=== PATIENT | male | born 2005 | race Caucasian/White ===

== ENCOUNTER 2025-07-12 07:15 | Emergency (ER) | payer OTHER, SELFPAY ==
[2025-07-12 07:26] VITALS: BP 139/63; PULSE 79; RESP 20; TEMP 36.9; O2SAT 97; BMI 21.2
--- NOTE | 2025-07-12 07:28 | ED.ABDPAIN ---
HPI - Abdominal Pain General Chief Complaint: Abdominal Pain Stated Complaint: Stomach issues. V/D Time Seen by Provider: 07/12/25 07:46 Source: patient and RN notes reviewed Mode of arrival: ambulatory Limitations: no limitations History of Present Illness ED Provider: Roxanna Bui PA-C HPI narrative: This is a [id number] who presents to the ER with complaints of abdominal pain, diarrhea, vomiting, and nausea. Reports that he has had cyclical vomiting over the last 3 days. Patient reports that his colleague is sick with similar symptoms. He states that the abdominal pain has since resolved after vomiting this morning. Denies any nausea. States that he is otherwise feeling well. Denies any fevers, chills, chest pain, shortness for breath, urinary symptoms. No bloody black stool. No hematemesis or hemoptysis. Denies taking any medications at home to treat his current symptoms. He states he previously was on omeprazole for acid reflux which he has since discontinued as he felt as though it was not helping. Denies alcohol use. No other complaints or concerns at this time. MD elicited complaint: abdominal pain Pain Consistency: constant Location: none Quality: aching Radiation: none Migration to: no migration Exacerbating factors: eating Relieving factors: nothing Associated symptoms: nausea, vomiting and diarrhea Related Data Previous Rx's ?Medication ?Instructions ?Recorded omeprazole 20 mg capsule,delayed 20 mg PO DAILY 2 weeks #14 caps 07/12/25 release ondansetron 4 mg disintegrating 4 mg PO Q6H PRN nausea and 07/12/25 tablet vomiting #7 tabs Allergies Allergy/AdvReac Type Severity Reaction Status Date / Time No Known Allergies Allergy Verified 07/12/25 07:29 Review of Systems Review of Systems Constitutional : No Fever, No Chills ENT/Mouth : No sore throat, No Rhinorrhea Eyes: No Eye Pain, No Swelling, No Redness Cardiovascular : No Chest Pain, No SOB Respiratory : No Cough, No Sputum Gastrointestinal : + Nausea, + Vomiting, + Diarrhea, +abdominal Pain Genitourinary : No Dysuria, No Hematuria Musculoskeletal : No joint pain, No Myalgias, No Joint Swelling Skin : No Skin Lesions Neuro : No Weakness, No Numbness, No Headache All other systems reviewed and are negative Yes all other systems are reviewed and are negative Constitutional: Reports as per [facility] Past Medical History Attestation statement: The following information was validated with the patient. Social History Social History Advance Directives: No Advance Directives Information Provided: No Do you have a plan to hurt others: No Plan Physical Exam ED Vital Signs: Vital Signs - 24 hr 07/12/25 07:26 07/12/25 08:52 07/12/25 09:30 Temperature 98.5 F 98.2 F 98.2 F Pulse Rate 79 60 60 Respiratory Rate 20 16 16 Blood Pressure 139/63 127/81 127/81 Pulse Oximetry 97 98 98 Oxygen Delivery Method Room Air Room Air Room Air BMI result Body Mass Index 21.2 Const General: cooperative, comfortable and no acute distress Orientation/consciousness: patient oriented x3 Limitations: no limitations HENMT Head: Yes normal to inspection, Yes normocephalic and Yes atraumatic Ears: hearing grossly normal bilaterally General nose exam: Normal external nose present Face and sinus: Yes normal facial exam Mouth: Normal oral and palatal mucosa present, oropharynx normal and moist mucous membranes Throat: Yes posterior oropharynx normal Eyes General: appearance normal, both eyes and all related structures Eyelids: Yes eyelids normal Conjunctivae: conjunctivae normal Sclerae: sclerae normal Pupils: Equal, round and reactive pupils present EOM: EOMs intact bilaterally Neck Neck: Yes normal visual inspection, Yes full ROM and Yes no lymphadenopathy Lymphatic: no lymphadenopathy noted Chest Chest palpation & inspection: normal inspection of the chest Resp Effort & Inspection: normal respiratory effort and able to speak in complete sentences Auscultation: clear to auscultation bilaterally, no crackles, no rales, no rhonchi and no wheezes Cardio Rate: regular rate Rhythm: regular rhythm Heart sounds: S1 normal heart sound present and S2 normal heart sound present GI Other: Abdomen is soft, nontender, nondistended Inspection: Yes normal to inspection Skin General skin exam: no rashes or lesions noted Trauma: no lacerations or abrasions Wounds: no wounds Neuro General: patient oriented x3 and moves all extremities Cranial nerves: Yes Equal, round and reactive pupils present Extrem General: Yes normal to inspection Right upper extremity: normal to inspection Left upper extremity: normal to inspection Right lower extremity: normal to inspection Left lower extremity: normal to inspection Medical Decision Making Medical Decision Making MDM Narrative: This is a [id number]-male who presents to the ER with complaints of abdominal pain, diarrhea, vomiting, and nausea. On arrival, vital signs within normal limits. He is speaking full sentences under no acute distress. Abdomen is soft, nontender, nondistended. Differential diagnoses include electrolyte derangement, gastritis, gastroenteritis, viral illness. Less likely acute abdomen versus acute surgical process as patient has a nondistended nontender, soft abdomen. He is not experiencing any abdominal pain at this point. We will obtain basic labs to rule out any electrolyte derangement. Patient is feeling better prior to his arrival therefore we will hold off on any IV medications or antiemetics. We will continue to closely monitor pending overall workup. 8:58 AM 07/12/2025 (Roxanna Bui PA-C): Labs returned, he has no leukocytosis, stable H&H, chemistry revealing slight elevation in T bili however patient has no abdominal pain, liver enzymes within normal limits. Lipase within normal limits. Discussed with patient that he may be experiencing cyclical vomiting syndrome, or a viral gastroenteritis. He also has a history of GERD and he has not been taking omeprazole. He has been taking this twice a day in the past which she realize did not help him. He was not taking this on an empty stomach. Stressed the importance of taking Prilosec on an empty stomach, and given prescription for Zofran. He is able to tolerate p.o. in the department therefore patient can be discharged. Advised patient to follow-up with his PCP upon returning home. Differential Diagnosis Differential Diagnoses: The differential diagnosis associated with the presentation includes See above Lab Data [facility] Lab Attestation statement: I reviewed the patient's lab results. See [facility] 07/12/25 07:37 07/12/25 07:37 Labs: Lab Results 07/12/25 Range/Units 07:37 WBC 9.1 (4.8-10.8) X10*3/uL RBC 5.51 (4.60-5.80) X10*6/uL Hgb 16.1 (14.0-18.0) g/dl Hct 47.3 (42.0-52.0) % MCV 85.8 (80.0-98.0) fL MCH 29.2 (27.0-33.0) pg MCHC 34.0 (31.0-36.0) g/dl RDW 13.0 (11.0-16.0) % Plt Count 275 (160-400) X10*3/uL MPV 9.3 L (9.4-12.4) fL Immature Gran % (Auto) 0.3 (0.0-0.4) % Neut % (Auto) 80.2 H (45-73) % Lymph % (Auto) 13.6 L (20-40) % [place] % (Auto) 5.4 (2-11) % Eos % (Auto) 0.2 (0-4) % Baso % (Auto) 0.3 (0-2) % Lymph # (Auto) 1.2 (1.2-4.9) X10*3/uL [place] # (Auto) 0.5 (0.1-1.2) X10*3/uL Eos # (Auto) 0.0 (0.0-0.4) X10*3/uL Baso # (Auto) 0.0 (0.0-0.2) X10*3/uL Abs Immat Gran (auto) 0.03 (0.00-0.03) X10*3/uL Absolute Neuts (auto) 7.3 (2.0-8.3) x10*3/uL Absolute Nucleated RBC 0.000 (0.0-0.012) X10*3/uL Nucleated RBC % (auto) 0.0 (0.0-0.2) /100WBC Sodium 140 (135-145) mmol/L Potassium 3.9 (3.3-5.1) mmol/L Chloride 108 (96-108) mmol/L Carbon Dioxide 24 (22-29) mmol/L Anion Gap 12 (12-20) BUN 8 L (9-16) mg/dL Creatinine 0.91 (0.5-1.4) mg/dL Estim Creat Clear Calc 128.9 Estimated GFR > 60 Random Glucose 107 (60-115) mg/dL Calcium 9.9 (8.4-10.2) mg/dL Magnesium 1.9 (1.6-2.6) mg/dL Total Bilirubin 1.1 H (0.0-1.0) mg/dL Direct Bilirubin 0.4 (0.0-0.5) mg/dL AST 31 (5-37) U/L ALT 23 (0-40) U/L Alkaline Phosphatase 34 L (39-117) U/L Total Protein 8.4 H (6.5-8.0) g/dL Albumin 5.0 (3.5-5.0) g/dL Lipase 18 (8-78) U/L Discharge Plan Discharge Clinical Impression: Nausea and vomiting Patient Disposition: Home, Self-Care Instructions: Acute Nausea and Vomiting (ED) Additional Instructions: You were seen in the emergency department due to nausea and vomiting. As discussed, this may be attributed to a virus, something that you have eaten, or possibly cyclical vomiting syndrome which can be attributed to marijuana use. Please stick to a bland diet over the next several days. I am starting you back on omeprazole, this is to be taken 30 minutes prior to eating or drinking in the morning. This helps decrease the acidity in your stomach, if you already have food or drink in your stomach, this will not work. I am also sending you a prescription for nausea if your nausea does returned. Please take only as needed. If any new or worsening symptoms occur including but not limited to high fevers, severe abdominal pain, inability to eat or drink, please seek emergent care. Please follow-up with your primary care physician when she returned home. Prescriptions: New omeprazole 20 mg capsule,delayed release(DR/EC) 20 mg PO DAILY 14 Days Qty: 14 0RF ondansetron 4 mg tablet,disintegrating 4 mg PO Q6H PRN (Reason: nausea and vomiting) Qty: 7 0RF Stand Alone Forms: Work/School Release Interventions: ED Discharge Assessment Last Done: 07/12/25 09:30 Discharge Date/Time: 07/12/25 09:33 Print Language: Tajik
[2025-07-12 07:41] LABS: MANUAL DIFF FLAG NO
[2025-07-12 07:46] LABS: Hematocrit 47.3 % (42.0-52.0); Hemoglobin 16.1 g/dl (14.0-18.0); Imm Gran Abs Auto 0.03 X10*3/uL (0.00-0.03); Imm Gran Pct Auto 0.3 % (0.0-0.4); Lymphocytes Absolute Auto 1.2 X10*3/uL (1.2-4.9); Mean Corpuscular HGB Conc 34.0 g/dl (31.0-36.0); Mean Corpuscular Hemoglobin 29.2 pg (27.0-33.0); Mean Corpuscular Volume 85.8 fL (80.0-98.0); NRBC Abs Auto 0.000 X10*3/uL (0.0-0.012); NRBC Pct Auto 0.0 /100WBC (0.0-0.2); Platelet Count 275 X10*3/uL (160-400); Red Blood Count 5.51 X10*6/uL (4.60-5.80); White Blood Count 9.1 X10*3/uL (4.8-10.8)
--- OUTSIDE RECORDS SUMMARY | 2025-07-12 07:47 | XMS_ITS | Clinical Summary ---
Author Organization 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 Name Role Phone Barbara Hernandez MD Primary Care Provi ying Social History Tobacco Use Types Packs/Day Years Used Date Smoking Tobacco: Never Assessed Sex and Gender Information Value Date Recorded Sex Assigned at Not on file Legal Sex Male 3:55 PM EDT Gender Identity Not on file Sexual Orientation Not on file Plan of Treatment Health Maintenance Due Date Last Done Comments Hepatitis C screening 2004 NonMedicare Preventative Exam 2004 Depression Screening 2016 HIV Screening 2019 Adult Tdap-Td (6 - Tdap) 2023 009, 09/18/2005, 03/23/2005, Additional history exists [facility] [employer] Cap ture Hidden 04/08/2025 Covid-19 Vaccine (Shared dec ision making) ( season) 2025 Influenza Vaccine (#1) 2025 Hepatitis B Vaccine Completed 03/23/2005, 01/29/2005, 2004 HPV Vaccine Completed 08/27/2018, 05/21/2017 Care Teams Recording Studio Setup Worker Relationship Specialty Start Date End Date Barbara Hernandez MD PCP - General EXTERNAL 08/21/18
--- OUTSIDE RECORDS SUMMARY | 2025-07-12 07:48 | XMS_ITS | Data Portability ---
Author Organization [place] - [facility], [place] [facility] Address [address] [place] [address] Care Team Providers Care Head Housekeeper Name Role Phone ANIA LOVE Primary Care Provider ANIA LOVE Primary Care Provider Unavailabl e Assessment No assessment recorded. Plan of Treatment Reminders Order Date Submit Date Provider Last Modified By Organization Details Last Modified Time Details Appointments None recorded. Lab CBC 2020 021 [facility] (Lab - Tia), [address] [address], [id number], 2 11:35:06 Referral behavioral health referral 2020 021 [email or web address] In-Office Order, Internal Use Only DO Not Attach Compendium DO Not Attach Compendium, Do Not Delete/merge, [id number] 1 11:36:17 Procedures None recorded. Surgeries None recorded. Imaging XR, ribs, unilateral, w/ PA chest - right front upper 2023 024 [email or web address] [facility], [address], [address], 4 11:23:43 Medication Orders famotidine 20 mg tablet 2021 022 [email or web address] [facility], [address], [place], [address], 4 15:31:11 doxycycline hyclate 100 mg capsule 2021 022 [email or web address] [facility], [facility] [address] Lopez, [place], [address], 4 15:13:41 fluoxetine 10 mg capsule 2021 022 [email or web address] [facility], [facility] Jeff Lopez, [place], [address], 4 15:31:17 Zoloft 50 mg tablet 2021 022 [email or web address] [facility], [facility] Jeff Lopez, [place], [address], 2 17:14:03 omeprazole 40 mg capsule,del ayed release 2021 022 [email or web address] [facility], [facility] Jeff Lopez, [place], [address], 4 15:31:19 Vistaril 25 mg capsule 2020 021 [email or web address] 5 [facility], [facility] Jeff Lopez, [place], [address], 16:04:42 Patient TargetsNo targets recorded. Patient Instructions Encounter Date Encounter Id Patient Instructions Last Modified By Organization Details Last Modified Time 08/20/2021 [id number] program - program one pager [email or web address] Not available 08/20/2021 11:14:18 Nonacute abdomen in presence of symptoms of acid reflux. Discussed obtaining a CBC to further investigate other cause of abdominal pain. Discussed low likelihood of cholecystitis or appendicitis. [email or web address] Not available 08/20/2021 11:19:39 10/03/2021 [id number] program - program one pager [email or web address] Not available 10/03/2021 16:17:29 Will schedule f/ u appt in 2 weeks (GERD/ODD) [email or web address] Not available 10/03/2021 19:37:15 Pt dropped out o f school and not interested in going back to school d/t being overwhelmed with anxiety per pts mother. Discussed if virtual or online schooling was an option, pt/pts mother declined. Will readdress at f/u appt. [email or web address] Not available 10/03/2021 19:41:27 10/19/2021 [id number] program - program one pager [email or web address] Not available 10/19/2021 16:05:17 Will schedule f/ u appt in 1 month (A&D). pt/pts mother instructed to f/u in clinic as needed [email or web address] Not available 10/19/2021 16:20:51 01/18/2022 [id number] program - program one pager [email or web address] Not available 01/18/2022 17:32:34 Will schedule f/ u appt in 1 month (A&D, GERD) Pt instructed to f/u in clinic as needed [email or web address] Not available 01/18/2022 17:44:30 04/27/2024 [id number] Rest. Refraining from over activity that causes additional discomfort. Take meds as discussed Avoid straining or lifting- no excessive activity to allow back/shoulder muscles to rest and repair Apply heat to affected area. Perform gentle stretches and massage. Return to clinic if pain continues for 7-10 days- or if pain worsens or if numbness, loss of sound designer or not able to use the arm . Discussed easy ROM to keep muscle some active but again emphasized to not over use the injured muscle with heavy lifting for several days- Imaging will be reviewed and will call with results and any furhter recommendations as needed Not available 05/01/2024 08:39:13 Plan of care discussed with patient, he verbalized understanding and is agreeable to plan. Not available 05/01/2024 08:38:21 Reason for Referral Behavioral Health Referral f or Oppositional defiant disorder ODD Referring Physician: Chris Salas, Family Medicine, Encounter Date: 08/20/2021 Results Created Date Observation Date Name Description Value Unit Range Abnormal Flag Note LastModifiedBy Organization Detail LastModifiedTime 08/20/20 21 08/20/2021 behav ioral healt h refer ral Referral Source Tetryl Wringer Operator al Not Available In-Office Order Internal Use Only DO Not Attach Compendium DO Not Attach Compendium, Do Not Delete/merge, [id number] 08/20/2021 11:09:58 08/20/2008/20/2021 behav ioral healt h refer ral Reason for Referral Consul t Not Available In-Office Order Internal Use Only DO Not Attach Compendium DO Not Attach Compendium, Do Not Delete/merge, [id number] 08/20/2021 11:09:58 08/20/20 21 08/20/2021 behav ioral healt h refer ral Presenting Problems aggres sive behavi or Not Available In-Office Order Internal Use Only DO Not Attach Compendium DO Not Attach Compendium, Do Not Delete/merge, [id number] 08/20/2021 11:09:58 08/20/2008/20/2021 behav ioral healt h refer ral Suicidality No suicid al ideati on Not Available In-Office Order Internal Use Only DO Not Attach Compendium DO Not Attach Compendium, Do Not Delete/merge, [id number] 08/20/2021 11:09:58 08/20/20 21 08/20/2021 behav ioral healt h refer ral Aggressive Behavior? Toward Others Not Available In-Office Order Internal Use Only DO Not Attach Compendium DO Not Attach Compendium, Do Not Delete/merge, [id number] 08/20/2021 11:09:58 08/20/20 21 08/20/2021 behav ioral healt h refer ral Currently seeing a therapist? No Not Available In-Of fice Order Internal Use Only DO Not Attach Compendium DO Not Attach Compendium, Do Not Delete/merge, [id number] 08/20/2021 11:09:58 08/20/20 21 08/20/2021 behav ioral healt h refer ral Location Preference Jake Not Available In-Of fice Order Internal Use Only DO Not Attach Compendium DO Not Attach Compendium, Do Not Delete/merge, [id number] 08/20/2021 11:09:58 Result Notes None recorded. Problems Name Problem SNOMED Code Status Onset Date Resolution Date Notes Provider Name and Address Organization Details Recorded Time Oppositional defiant disorder 54724626 Active 2016 Meena Clarke LPN null, [place] - [facility] 7 14:19:06 Environmental allergy 700827561 Active 2016 MONTSE Baugh, [place] - [facility] 7 14:19:18 Gastroesophage al reflux disease without esophagitis 664864643 Active 2021 DENITA Mendoza-Mary [address] [place], [address], [facility] [place] - [facility] 2 19:43:31 Problem Notes None recorded. Medical Equipment None Reported. Allergies Allergen ID Allergen Name Allergen Category Reaction Reaction Severity Criticality Documentation Date Start Date Code Code System Note Provider Name and Address Organization Details Recorded Time [id number] house dust mite environme nt Not available Not available Not available 04/27/2024 Margarita hart [place] - [facility] 4 15:31:02 No known drug allergies Medications Name Sig Start Date Stop Date Status Note LastModified by Organization Details LastModified Time doxycycli ne hyclate 100 mg capsule Take 1 capsule twice a day by oral route as directed for 10 days. 04/27 completed Not Available Not Available Not Available cetirizin e 10 mg tablet Take 1 tablet every day by oral route for 90 days. 10/03 completed Pts parent states he refuses Not Available Not Available Not Available ondansetr on HCl 4 mg tablet 10/03 completed Not Available Not Available Not Available omeprazol e 40 mg capsule,d elayed release Take 1 capsule by mouth once daily 04/27 completed Not Available Not Available Not Available amoxicill in 875 mg tablet 08/20 completed Not Available Not Available Not Available famotidin e 20 mg tablet Take 1 tablet twice a day by oral route as directed for 30 days. 04/27 completed Not Available Not Available Not Available fluoxetin e 10 mg capsule Take 1 capsule every day by oral route as directed for 30 days. 04/27 completed Not Available Not Available Not Available ondansetr on 4 mg disintegr ating tablet 08/20 completed Not Available Not Available Not Available sertralin e 50 mg tablet TAKE ONE TABLET BY MOUTH EVERY DAY DIRECTED 01/18 completed Not Available Not Available Not Available dicyclomi ne 10 mg capsule 10/03 completed Not Available Not Available Not Available hydroxyzi ne pamoate 25 mg capsule TAKE ONE CAPSULE BY MOUTH FOUR TIMES DAILY 10/19 completed Not Available Not Available Not Available melatonin 10mg one QHS PRN 06/23 completed Not Available Not Available Not Available Vitals Date Recorded Respiratory rate Oxygen saturation Oxygen saturation in Arterial blood by Pulse oximetry Body temperature Heart rate Systolic And Diastolic Provider Name and Address Organization Details Last Updated DateTime 2 16 /min 97 % 97 % 97.2 [degF] 88 /min 110/82 mm[Hg] Zahra Mccall LPN [facility] 2 16:04:54 Date Recorded Body height Body mass index (BMI) [Percentile] Per age and sex Body mass index (BMI) Body weight Provider Name and Address Organization Details Last Updated DateTime 10/03/2021 175.9 cm 17 % 19.2 kg/m2 19696.95 g Princesslazaro Yanez [facility] 10/03/2021 15:55:59 Date Recorded Respiratory rate Oxygen saturation Oxygen saturation in Arterial blood by Pulse oximetry Body temperature Heart rate Systolic And Diastolic Provider Name and Address Organization Details Last Updated DateTime 2 16 /min 98 % 98 % 98 [degF] 78 /min 124/82 mm[Hg] Zahra Mccall LPN [facility] 2 15:49:13 Date Recorded Body weight Body mass index (BMI) [Percentile] Per age and sex Body mass index (BMI) Body height Provider Name and Address Organization Details Last Updated DateTime 10/19/2021 26800.32 g 25 % 19.8 kg/m2 175.9 cm [facility]21 15:42:53 Date Recorded Respiratory rate Oxygen saturation Oxygen saturation in Arterial blood by Pulse oximetry Body temperature Heart rate Systolic And Diastolic Provider Name and Address Organization Details Last Updated DateTime 2 16 /min 97 % 97 % 97.1 [degF] 66 /min 122/80 mm[Hg] Zahra Mccall LPN [facility] 2 17:09:32 Date Recorded Body weight Body mass index (BMI) [Percentile] Per age and sex Body mass index (BMI) Body height Provider Name and Address Organization Details Last Updated DateTime 01/18/2022 71717.97 g 11 % 18.8 kg/m2 180.34 cm Rosalee Carrion [facility] 01/18/2022 16:54:13 Date Recorded Body height Body temperature Respiratory rate Oxygen saturation Oxygen saturation in Arterial blood by Pulse oximetry Heart rate Pain severity - 0-10 verbal numeric rating [Score] - Reported Body mass index (BMI) [Percentile] Per age and sex Body mass index (BMI) Body weight Systolic And Diastolic Provider Name and Address Organization Details Last Updated DateTime 4 180.34 cm 98.6 [degF] 14 /min 98 % 98 % 57 /min 6 21 % 20.8 kg/m2 61239.3 6 g 126/68 mm[Hg] Margarita Cutler [facility] 4 15:36:10 Date Recorded Body weight Body mass index (BMI) [Percentile] Per age and sex Body mass index (BMI) Body height Respiratory rate Body temperature Oxygen saturation Oxygen saturation in Arterial blood by Pulse oximetry Heart rate Pain severity - 0-10 verbal numeric rating [Score] - Reported Systolic And Diastolic Provider Name and Address Organization Details Last Updated DateTime 1 87180.1 3 g 8 % 18.3 kg/m2 182.63 cm 18 /min 98.7 [degF] 99 % 99 % 60 /min 4 110/78 mm[Hg] Richard Felipe RN [facility] 1 10:41:37 Social History Question Answer Notes LastModified by Organizat ion Details LastModified Time Tobacco Smoking Status Never Smoker Ania hart [place] - [facility] 11/02/2016 13:07:40 Animal Exposure? Yes Informat ion not available 11/02/2016 Do You Wear A Helmet When Biking? No Information not available 08/20/2018 Are You Blind Or Do You Have Difficulty Seeing? No Information n ot available 08/20/2021 What Is Your Level Of Caffeine Consumption? Occasional Information not available 11/02/2016 How Much Tobacco Do You Chew? None Information not available 11/02/2016 What Type Of Parts Clerk Plant Maintenance Do You Use? None [email or web address] Information not available 01/18/2022 Concerns About Meeting Basic Needs (food, Housing, Heat, Etc)? No Information not available 08/20/2018 Are You Deaf Or Do You Have Serious Difficulty Hearing? No Information not available 08/20/2021 What Type Of Diet Are You Following? REGULAR Information n ot available 11/02/2016 Does Family Ever Have Difficulty Making Ends Meet At The End Of The Month? No Information not available 08/20/2018 Which Illicit Or Recreational Drugs Have You Used? THC (plant Based And Wax Based) [email or web address] Information not available 10/03/2021 Drugs Abused None Information not available 08/20/2018 What Is The Highest Grade Or Level Of School You Have Completed Or The Highest Degree You Have Received? [id number] [email or web address] Information not available 04/27/2024 What Is The Fluoride Status Of Your Home? Non-fluoridate d Information not available 08/20/2018 Hard Of Hearing Or Deaf In One Or Both Ears? No Information not available 11/02/2016 What Is Your Home Situation? Mother Information not available 11/02/2016 Do You Use Insect Repellent Routinely? No Information not available 08/20/2018 Legally Blind In One Or Both Eyes? No Information no t available 11/02/2016 Has Patient Lived Anywhere But With Their Parents/caregivers ? No Information not available 08/20/2018 Stress In Home? No Informati on not available 08/20/2018 Are There Weapons In The Home? No Information not available 08/20/2018 Are The Weapons Secured? No Information not available 08/20/2018 Patient Has A Weapon? No Information not available 08/20/2018 Has Anyone Ever Hit, Choked, Kicked, Or Hurt The Patient? No Information not available 08/20/2018 Has Your Child Ever Had A Really Bad Or Scary Experience That They Cannot Forget (ages 2 Years And Up)? No Information not available 08/20/2018 Does Your Child Have Bad Dreams Or Nightmares (ages 2 Years And Up)? No Information not available 08/20/2018 Are You In A Relationship? No Information not available 08/27/2018 Does The Patient Have Any Children? No Information n ot available 08/27/2018 How Often Do You Need Help Reading Or Understanding Information About Your Medical Problems? (age 18 And Up) Never [email or web address] Information not available 04/27/2024 Positive Family History Of CVD? (defined As A History Of Premature (less Than 56 Years Of Age) Cardiovascular Disease In A Parent Or Grandparent) No Information not available 08/27/2018 Positive Family History, Elevated Blood Cholesterol > 240 Mg/dl? No Information not available 08/27/2018 Unknown Family History, Adopted? No Information no t available 08/27/2018 Cigarette Smoking? No Inform ation not available 08/27/2018 Elevated Blood Pressure? Yes Information not available 08/27/2018 Overweight/Obesity (BMI > 85%)? Yes Information not available 08/27/2018 Diabetes Mellitus? No Inform ation not available 08/27/2018 Physical Inactivity? Yes Information not available 08/27/2018 Poor Dietary Habits? Yes Information not available 08/27/2018 Dyslipidemia Risk Low Informa tion not available 08/27/2018 Low Birthweight Or ? N/A Information not available 08/27/2018 Using [id number] Formula? N/A Information not available 08/27/2018 Cow's Milk Before Age 12 Months? N/A Information not available 08/27/2018 Diet Low In Iron, Inadequate Nutrition? No Information not available 08/27/2018 Meal Skipping, Frequent Dieting? No Information no t available 08/27/2018 Heavy/lengthy Menstrual Periods Or Recent Blood Loss? N/A Information not available 08/27/2018 Intensive Physical Training Or Participation In Endurance Sports? N/A Information no t available 08/27/2018 Or Recent ? N/A Information no t available 08/27/2018 Anemia Risk Low Information n ot available 08/27/2018 Radiographic Findings Suggesting TB No Information not available 08/27/2018 SDoH Date 10/19/2021 [email or web address] Information no t available 10/19/2021 Are You Taking Any Over The Counter Medication, Herbal Therapies And/or Supplements? No [email or web address] Information not available 04/27/2024 Homemade Tattoos? No [email or web address] Informa tion not available 10/03/2021 History Of Incarceration? (18 And Up) No [email or web address] Information not available 04/27/2024 Does Either Parent Have Hepatitis C? No Information no t available 08/20/2018 Advance Directives Status (18 Y/o And Up) Patient Declines At This Time Information not available 04/27/2024 Family History Of Substance Abuse? Yes Father [email or web address] Information not available 08/18/2017 Family History Of Mental Or Behavioral Health Problems? No [email or web address] Information not available 08/18/2017 Weight (age 6 And Under) 8lbs 4oz Information not available 08/20/2018 Psychology - Initial Call 07/14/2019 [email or web address] Information not available 07/14/2019 Psychology - Referral Date 06/23/2019 [email or web address] Information not available 07/14/2019 Psychology - Referred By: Alice [email or web address] Information not available 07/14/2019 Psychology - Referral Status 1st Attempt [email or web address] Information not available 10/13/2019 Psychology - Referral Outcome Patient Declined Referral [email or web address] Information not available 10/13/2019 Psychology - Age Adult Informat ion not available 07/14/2019 Psychology - Program Type Individual Therapy [email or web address] Information not available 07/14/2019 A Social History Update Completed 04/27/2024 [email or web address] Information not available 04/27/2024 Are You Diabetic? No Informa tion not available 08/20/2021 Sliding Fee Q 1 Yes [email or web address] Informati on not available 04/27/2024 Sliding Fee Q 2 No [email or web address] Informati on not available 08/20/2021 Sliding Fee Q 3 No [email or web address] Informati on not available 08/20/2021 Sliding Fee Q 4 Yes [email or web address] Informati on not available 04/27/2024 Sliding Fee Q 5 No [email or web address] Informati on not available 04/27/2024 Sliding Fee Q Date 04/27/2024 [email or web address] Inform ation not available 04/27/2024 Have You Traveled Outside Of The [place] In The Last 12 Months? No Information not available 11/02/2016 Have You Moved To The [place] From A Foreign Country? No Information not available 08/27/2018 Have You Been Exposed To Any Person With TB? No Information not available 08/27/2018 Would You Like To Become In The Next Year? No [email or web address] Information not available 04/27/2024 Peer Pressure To Do Things You Don't Want To Do No Information not available 08/27/2018 Exposure To Inappropriate Touching No Information not available 08/20/2018 Pressured To Have Sex No Information not available 08/27/2018 Trouble With The Law No Information not available 08/27/2018 Have You Seen A Dentist In The Past 12 Months? Yes [email or web address] Information not available 04/27/2024 Control Method Male Condom Information not available 04/27/2024 Are You Taking Any Over The Counter Medication, Herbal Therapies And/or Supplements? No Information not available 11/02/2016 What Was The Date Of Your Most Recent Tobacco Screening? 04/27/2024 [email or web address] Information not available 04/27/2024 Family Has Moved Frequently/lived With Others Due To Finances Within The Last Year? No Information not available 08/20/2018 What Is Your Parents' Marital Status? Information not available 08/20/2018 What Is Your Relationship Status? Single [email or web address] Information not available 10/03/2021 Do You Use Your Seat Belt Or Car Seat Routinely? Yes Information not available 08/20/2018 Seat Belts Used Routinely Yes Information not available 08/27/2018 Are You Sexually Active? No Information not available 08/27/2018 Do You Have Any Siblings? 1 Information not available 11/02/2016 Do You Have Smoke And Carbon Monoxide Detectors In Your Home? Yes Information not available 08/20/2018 Are You Passively Exposed To Smoke? Yes Information no t available 11/02/2016 How Much Tobacco Do You Smoke? No Information not available 11/02/2016 What Types Of Sporting Activities Do You Participate In? None Information not available 08/20/2018 General Stress Level Low Information not available 08/27/2018 Do You Use Sunscreen Routinely? No Information not available 08/20/2018 TB Risk Low Information no t available 08/27/2018 How Many Years Have You Smoked Tobacco? 0 Information not available 11/02/2016 Have You Used IV Drugs? No Information not available 10/03/2021 Year In School 8 Informatio n not available 08/20/2018 Are You Currently In School? No [email or web address] Information not available 10/03/2021 How Many Years Have You Used E-cigarettes Or Vape? 4 Information not available 04/27/2024 Sex: Male Functional Status Question Answer Note LastModified by Organizat ion Details LastModified Time Do you use any illicit or recreational drugs? Yes Pt states uses THC (plant based and wax based) In the past [email or web address] Information not available 10/03/2021 Do you or have you ever used any other forms of tobacco or nicotine? No Information not available 08/20/2021 What is your level of alcohol consumption? None Information not available 08/20/2018 Do you or have you ever used smokeless tobacco? Never used smokeless tobacco [email or web address] Information not available 06/23/2019 Are you currently employed? Yes [email or web address] Information not available 04/27/2024 Do you have transportation difficulties? 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 Current user of electronic cigarettes [email or web address] Information not available 04/27/2024 What is your exercise level? Moderate Information not available 11/02/2016 Mental Status None recorded. Family History Relationship Description Onset Age of this Age Resolved Age Notes LastModified by Organization Details LastModified Time Father Aneurysm Not available 08/20/2018 09:10:31 Paternal Aunt Family history of malignant neoplasm breast cancer Not available 08/20/2018 09:10:59 Medical History Condition Response Coronary Artery Disease N Gout N Stomach or Digestive Problems N Recurrent Ear Infections N Kidney Stones N Blood Diseases N Hyperthyroidism N Medication adverse effects N (PM) Board of Pharmacy Discrepancy N Sexually Transmitted Disease N Abstinence Syndrome N Sleep Problems N Hypothyroidism N COPD N Depression N Pneumonia N Developmental or Behavioral Disorders N Dental Problems N Anxiety Disorder Y Vision or Eye Problems N Arthritis N Serious Illness or Injuries N Congenital Anomalies N Cancer N IBS N Stroke N Blood clot N Bladder or Kidney Problems N Hospital Admission other than N High Cholesterol N Liver Disease N Fibromyalgia N Crohn's N Kidney Disease N Heart Problems N Recurrent Urinary Tract Infections N Colitis N Ear or Hearing Problems N Eczema/Hives/other skin conditions N Migraines N ADD or ADHD N Skin Problems N Anemia N Constipation N Broken Bones Y Diabetes N Bedwetting N Seizures/Epilepsy N Lung Problems N Learning Disability N Tuberculosis N Muscle/Joint/Bone Problems Y Chronic Pain N Diverticulitis N Asthma N Allergies Y Substance Abuse N Ulcerative Colitis N GERD/Reflux N Heart Disease N Pulmonary Embolism N Hypertension N Osteoporosis N Chicken Pox N COVID N Immunizations Vaccine Type Date Status Note Provider Nam e and Address Organization Details Recorded Time Rabies - IM Diploid cell culture 4 completed Margarita hart [place] - [facility] 04/27/2024 15:26:15 Rabies - IM Diploid cell culture 4 completed Margarita hart [place] [facility] 04/27/2024 15:26:15 [id number] 8 completed Not Available [facility] 09/25/2019 02:18:00 DTaP 4 completed MONTSE Lim, [place] - [facility] 11/27/2017 12:14:56 DTaP 6 completed Melida Tai LPN [place], [place] - [facility] 11/27/2017 12:15:17 DTaP-Hep B-IPV 5 completed MONTSE Lim, [place] - [facility] 11/27/2017 12:15:46 DTaP-Hep B-IPV 5 completed Not Available [facility] 10/09/2019 02:12:07 DTaP-IPV 9 completed Taylor Winkler RN null, [place] - [facility] 06/23/2019 15:18:04 HPV9 7 completed Not Available [facility] 10/09/2019 02:12:06 Hep A, ped/adol, 2 dose 9 completed Taylor Winkler RN null, [place] - [facility] 06/23/2019 15:18:04 Hep A, ped/adol, 2 dose 5 completed Not Available [facility] 10/09/2019 02:12:07 Hep B, adolescent or pediatric 4 completed Melida Tai LPN null, [place] - [facility] 11/27/2017 12:18:15 Hib (PRP-T) 5 completed Melida Tai LPN null, [place] - [facility] 11/27/2017 12:18:33 Hib (PRP-T) 5 completed Not Available [facility] 10/09/2019 02:12:07 Hib (PRP-T) 5 completed Not Available [facility] 10/09/2019 02:12:07 IPV 4 completed Melida Tai LPN null, [place] - [facility] 11/27/2017 12:19:19 MMR 5 completed Not Available [facility] 10/09/2019 02:12:08 MMR 9 completed Taylor Winkler RN null, [place] - [facility] 06/23/2019 15:18:04 Tdap 7 completed Not Available [facility] 10/09/2019 02:12:06 meningococcal MCV4P 7 completed Not Available [facility] 10/09/2019 02:12:08 pneumococcal conjugate PCV 7 5 completed Zahra Mccall LPN null, [place] - [facility] 01/18/2022 17:01:38 pneumococcal conjugate PCV 7 5 completed Not Available [facility] 10/09/2019 02:12:06 pneumococcal conjugate PCV 7 5 completed Not Available [facility] 10/09/2019 02:12:07 varicella 6 completed Melida Tai LPN null, [place] - [facility] 11/27/2017 12:21:50 varicella 9 completed JOHNSON [place], [place] - [facility] 06/23/2019 15:18:04 IPV 6 completed Taylor Winkler RN null, [place] - [facility] 06/23/2019 15:18:04 Pneumococcal conjugate PCV 13 5 completed JOHNSON [place], [place] - [facility] 06/23/2019 15:18:04 Past Encounters Encounter ID Performer Location Encounter Start Date Encounter Closed Date Diagnosis/Indication Diagnosis SNOMED-CT Code Diagnosis ICD10 Code Diagnosis IMO Codes Diagnosis Note [id number] Al Escalante PA-C [facility] [address] [id number] 11/02/2016 12:41:07 11/02/2016 13:34:28 Overweight in childhood 055803220 Z68.53 History an d physical examination, sports participation 737125974 Z02.5 --Cleared for participat ion without restrictio ns. See scanned in form. [id number] Barbara rust MD [facility] [address] [id number] 08/18/2017 08:28:57 08/18/2017 09:09:12 Oppositional defiant disorder 26085830 F91.3 Px has tried and failed multiple meds in the past. Will refer to psychiatry for further eval and management . Will get records from previous PCP. Asperger's disorder 2356 0001 F84.5 [id number] Barbara rust MD [facility] [address] [place] [address] 08/20/2018 08:50:45 08/20/2018 09:30:10 Finding of body mass index 364415919 Z68.52 Mass of left breast 1224 [id number] 8913696 N63.42 Diffs include breast gland inflammati on vs lipoma. Will do US breast and refer to Gen surg. Acute uppe r respiratory infection 96295981 J06.9 Viral. Symptomati c and supportive tx. Increase hydration, rest, use cool mist humidifier at night. [id number] Barbara rust MD [facility] [place] [id number] 08/27/2018 13:31:38 08/27/2018 15:11:35 Well child 232140587 Z00.129 Discussed with mom and px nutrition, vaccinatio ns, oral hygiene, sleep, discipline , peer pressure, safety, <2hrs screening time daily, sunscreen. Finding of body mass index 133608695 Z68.21 Exercises education, guidance, and counseling 547889985 Z71.82 Diet education 33043603 Z71.3 Pubertal gynecomastia 23 4309350 N62 Reassuranc e given. Will check labs since sx started about a year ago. Administra tion of viral vaccine 49226440 Z23 [id number] Barbara rust MD [facility] [place] [id number] 06/23/2019 15:09:56 06/23/2019 16:11:16 Finding of body mass index 500565089 Z68.52 Allergic rhinitis 780925 04 J30.9 Opposition al defiant disorder 90321278 F91.3 by HX, also possible autism spectrum. needs to establish with psychiatry [id number] JUSTICE Betancourt [facility] [place] [id number] 08/20/2021 09:42:07 08/20/2021 11:36:16 Finding of body mass index 055374159 Z68.52 Opposition al defiant disorder 38009485 F91.3 Generalize d abdominal pain 767601835 R10.84 Anxiety 18459045 F41.9 [id number] Barbara rust MD [facility] [place] [id number] 10/03/2021 15:35:01 10/03/2021 16:33:56 Gastroesophageal reflux disease without esophagitis 484783809 K21.9 Pts mother requesting med refill. Discussed lifestyle modificati on: wt loss, avoid meals 2-3 hours before bedtime, and eliminate food triggers/g astric irritants: chocolate, caffeine, ETOH, acid/spicy food. Discussed eating pattern, pt not eating from 5pm until 8am, encourage pt/pts mother to eat dinner d/t >12+ hrs in b/w meals. Also, instructed to limit spicy foods. Pt/pts mother instructed to keep a food diary, dietary intake/sym ptoms and bring to f/u appt in 2 weeks. Pt/pts mother verbalized understand ing and agree with plan of care. Childhood obesity 846281 003 Z68.54 Opposition al defiant disorder 43276886 F91.3 Pt was dx with ODD as a child per mother. Discussed a referral, pt/pts mother declined stating, he refuses to go . instructed pt/pts mother to start hydroxyzin e prn and will schedule f/u appt in 2 weeks. Pt/pts mother verbalized understand ing and agree with plan of care. 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 Pt does have anger outburst occasiona lly per pts mother. Pt/pts mother agreeable to trial sertraline . Pt educated on medication /side effects. Recommende d referral-p ts declined. Pts mother declined stating, he refuses to go . Will schedule f/u appt in 1 month. Pt/pts mother verbalized understand ing and agree with plan of care. [id number] Barbara rust MD [address] [address] 01/18/2022 16:42:03 01/18/2022 17:46:57 Finding of body mass index 505625005 Z68.52 Gastroesop hageal reflux disease without esophagitis 253707005 K21.9 Will trial pepcid 20mg PO BID. Pt/pts mother educated on medication /side effects/ how to take. Discussed lifestyle modificati on: wt loss, avoid meals 2-3 hours before bedtime, and eliminate food triggers/g astric irritants: chocolate, caffeine, ETOH, acid/spicy food. Discussed eating pattern, pt not eating from 5pm until 8am, encourage pt/pts mother to eat dinner d/t >12+ hrs in b/w meals. Also, instructed to limit spicy foods.Pt also reported upset stomach w/milk products, discussed starting OTC lactaid supplement for milk products. Pts mother would like a referral to see GI, will place referral per request. Pt/pts mother instructed to keep a food diary, dietary intake/sym ptoms and take to f/u appt to GI. Will schedule f/u appt in 1 month. Pt/pts mother verbalized understand ing and agree with plan of care. Mixed anxi ety and depressive disorder 638342892 F41.8 Pt does not wish to continue w/sertrali ne. Discussed other med options. Pt agreeable to trial fluoxetine 10mg PO QD. Pt educated on medication /side effects. Recommende d referral-p ts declined. Pts mother declined stating, he refuses to go . Will schedule f/u appt in 1 month. Pt/pts mother verbalized understand ing and agree with plan of care. Tick bite 39123393 W57.X XXA Tick removed, slightly erythema noted to left abreu. Will go ahead and tx w/ doxy x 10days. pt/pts mother educated pt on medication /side effect/how to take. Pt/pts mother instructed to f/u in clinic if area worsens. [id number] MEENA GREY MD [facility] [address] [id number] 04/27/2024 15:07:21 04/27/2024 15:50:19 Rib pain 931754630 R07.81 [id number] will check x-ray Muscle spa sm of cervical muscle of neck 2321866708 04 M62.469 1050630 Health Concerns Section Related Observation LastModified by Organization Detai ls LastModified Time None Recorded Concern Status LastModified by Organization Details LastModified Time None Recorded Advance Directives Directive None Recorded Payers Insurance Date Sequence Insurance Name Policy Number Policy Trejo Covered Member ID Trejo Member ID Guarantor Name 04/27/2024 2 [employer] [place] Giuliano Zavala [id number] Itzel Zavala 04/27/2024 1 [place] [employer] Giuliano Zavala [id number] Itzel Zavala 04/27/2024 1 [employer] - [employer] (PPO) Giuliano Zavala [id number] Itzel Zavala 05/11/2024 1 [facility] - [place] PLAN (PPO) [id number] Itzel Zavala [id number] Itzel Zavala Notes Date Note Type Note Provider Name and Address Organization Details Recorded Time 08/20/2021 text/html BMIReported by PatientBMI in the Normal range. 5210 handout reviewed with patient. Periumbilical pain that migrates to RLQ for 2 days. Reports pain is not worse after eating. Also c/o occastional upper abdominal pain. Denies h/o abdominal surgeries. Also c/o episodes of hand numbness and lip numbness that resolve spontaneously. Reports diarrhea for one month. Denies vomiting. Mother at bedside reports ASD with ODD . Was given meds but is noncompliant. Last appointment for this is unknown to mother.Reports anxiety has worsened and was recently on probation from school. JUSTICE Betancourt [address] [place], [address], [facility] 08/20/2021 11:30:26 10/03/2021 text/html BMIReported by PatientBMI in the range. 5210 handout reviewed with patient. Pre-Visit Planning CONFIRMEDDate & Time Called: 09/12/21Caller: Teagan: contacted- COVID-19 symptoms in the last 7 days? (cough, fever, shortness of breath, sore throat, runny nose, body aces or headache) none- Been exposed someone who tested positive for COVID-19 in the last 7 days? no- QM due: immunizations - Discussed with patient: no- Outstanding Orders: yes - Discussed with patient nolabs- Records needed: N/A- Been to other providers/healthcar e facilities including the ER? no - If yes, list details:- If YES, records are: N/A- Balance Due/Co-Pay discussed with patient: no - Payment plan set up N/A- [facility]--Patient advised to bring pill bottles and insurance cards and arrive 20 minutes before appointment time and to please wear a mask in the building.----Additi onal Notes: EstablishingPt is being seen today to establish care, med refill. Pt is accompanied by his mother. PMhx includes: ASD w/ODD, GERD. PSHx: None. Pt does not take any OTC medication/suppleme nt.Today, pts mother is requesting refill for omeprazole. Pt has been experiencing ongoing ABD pain since 06/2021. Pt states he was doing great on medication but ran out of medicine 2 weeks ago.Pts mother also states pt was recently seen in walk in and started on hydroxyzine for ODD. Pts mother states pt had seen multiple specialist in the past, [facility] and was put on depakote, adderall, and seroquel in the past. Pts mother states pt will have angry outburst at times and would like to start him on hydroxyzine. Pts mother states pt hasn't tried medication as I just picked up medication before coming here . Pts mother did not have any other concerns at this time. DENITA Mendoza-Mary [address] [place], [address], [facility] [place] [facility] 10/03/2021 19:43:50 10/19/2021 text/html Pre-Visit PlanningDate & Time Called: 10/17/21 at 1:20pmCaller: Teagan: ANNETTETRC- COVID-19 symptoms in the last 7 days? (cough, fever, shortness of breath, sore throat, runny nose, body aces or headache)- Been exposed someone who tested positive for COVID-19 in the last 7 days?- QM due: immunizations - Discussed with patient:- Outstanding Orders: no - Discussed with patient no- Records needed: N/A- Been to other providers/healthcar e facilities including the ER? - If yes, list details:- If YES, records are:- Balance Due/Co-Pay discussed with patient: - Payment plan set up- [facility]: already uses--Patient advised to bring pill bottles and insurance cards and arrive 20 minutes before appointment time and to please wear a mask in the building.----Additi onal Notes: 2 week follow upPt is being seen today for 2 week f/u for ODD. Pt is accompanied by his mother. Pts mother states the hydroxyzine did not work at all. Pt states he did not noticed a difference and still feels anxious and depressed everyday. Pt states he has never tried any other medication in the past for symptoms. Pt/pts mother would like to try something different. pt/pts mother did not have any other concerns at this time. DENITA Mendoza-Mary [address] [place], [address], [facility] [place] [facility] 10/19/2021 16:21:07 01/18/2022 text/html BMIReported by PatientBMI in the Normal range. 5210 handout reviewed with patient. Pre-VisitDate & Time Reviewed: 01/16/22 @ 5:24pCaller: Result: TRC- Outstanding Orders (labs & referrals): n/a- Records needed: N/A- Records notes:- Additional Notes: Sick visitPt is being seen today for c/o of A&D, heartburn, and tick bite. A&D- Pt states he is still experiencing anxiety/depression. Pt states he stopped taking his zoloft after 1 week because it made me clench my teeth a lot . Pt states he has always felt depressed with anxiety and would like to start on another medication that also helps with anger . Pt denies any thoughts of suicide/homicide ideation or self harm. GERD-Pt also states he stopped taking the omeprazole after a few weeks. Pt states it was helping but then stopped . Pt states it has nothing to do with the foods I eat and it comes and go . Pt denies any episodes of n/v/diarrhea. Today, pt states he removed a tick from my left leg yesterday. Pt states he woke up this morning with redness on my leg. Pt states he has been feeling really tired lately. Denies any fever, chills, or body aches. Pt/pts mother did not have any other concerns at this time. Taylor Wang LPN [facility], [place] - [facility] 03/26/2022 15:54:15 04/27/2024 text/html BMIReported by StaffBMI in the range. 5210 handout reviewed with patient. Presents to clinic with mom with complaints of right rib pain, feels like lung collapsed. States symptoms started about a week ago. Does not recall any injuries. has taken tylenol and has not helped. No other treatments at this time. Denies fever, shortness of breath, chest pains, n/v/d DENITA Dubois-[address], [address], [place] - [facility] 05/01/2024 08:39:17
[2025-07-12 08:03] LABS: Alanine Aminotransferase 23 U/L (0-40); Albumin Level 5.0 g/dL (3.5-5.0); Alkaline Phosphatase 34 U/L (39-117); Anion Gap 12 (12-20); Aspartate Amino Transferase 31 U/L (5-37); Blood Urea Nitrogen 8 mg/dL (9-16); Calcium 9.9 mg/dL (8.4-10.2); Carbon Dioxide 24 mmol/L (22-29); Chloride 108 mmol/L (96-108); Creatinine Clr Calc Pharmacy 128.9; Estimated Glomerular Filt Rate > 60; Lipase 18 U/L (8-78); Magnesium 1.9 mg/dL (1.6-2.6); Potassium 3.9 mmol/L (3.3-5.1); Sodium 140 mmol/L (135-145); Total Protein 8.4 g/dL (6.5-8.0)
[2025-07-12 08:52] VITALS: BP 127/81; PULSE 60; RESP 16; TEMP 36.8; O2SAT 98
[2025-07-12 09:30] VITALS: BP 127/81; PULSE 60; RESP 16; TEMP 36.8; O2SAT 98
== END 2025-07-12 09:33 | disposition home or self-care (01) ==
PROVIDERS: Physician Assistant Medical; Emergency Provider Emergency Medicine
DX: R11.2 Nausea with vomiting, unspecified (principal); R10.9 Unspecified abdominal pain; R19.7 Diarrhea, unspecified
CPT/HCPCS: 36415; 80048; 80076; 83690; 83735; 85025; 99283; 99284